=== PATIENT | female | born 1995 | race Caucasian/White ===

== ENCOUNTER 2020-08-08 21:01 | Emergency (ER) | payer BC, MEDICARE ==
[~2020-08-08] VITALS: Ht 165.1 cm; Wt 80.7 kg
[2020-08-08 21:09] VITALS: BP 118/76
--- NOTE | 2020-08-08 21:18 | NUR ---
PT AMBULATED TO ER BED 06
--- NOTE | 2020-08-08 21:25 | NUR ---
BIBS, C/O VAGINAL PAIN WITH LUMPS THAT ARE PALPABLE. C/O PAIN @ 9/10 WHICH RADIATES TO LOWER BACK X2D. PT ABLE TO AMBULATE INDEPENDENTLY. DENIES TRAUMA TO LOCATION. PMH-NONE MEDS- PT UNABLE TO RECALL BUT BELIEVES IT WAS APAP WITH CODIENE THIS AM. ALLERGIES- NKA
--- NOTE | 2020-08-08 21:30 | NUR ---
ER MD AT BEDSIDE EVALUATING PT
[2020-08-08] MEDS: SULFAMETH/TRIMETH DS 800/160MG 1 TAB PO ONE (21:47)
--- NOTE | 2020-08-08 21:47 | NUR ---
MEDICATED ORDERED WITHOUT INCIDENT.
[2020-08-08] MEDS: HYDROcodone/APAP 5/325 MG 1 TAB TAB PO ONE (21:48)
[2020-08-08] MEDS: ONDANSETRON 4 MG ODT PO ONE (21:48)
[2020-08-08 22:10] VITALS: BP 118/76
--- NOTE | 2020-08-08 22:10 | NUR ---
Patient discharged with v/s stable. Written and verbal after care instructions given and explained. Patient alert, oriented and verbalized understanding of instructions. Ambulatory with steady gait. All questions addressed prior to discharge. ID band removed. Patient advised to follow up with PMD. Rx of ZOFRAN, BACTRIM, NORCO given. Patient educated on indication of medication including possible reaction and side effects. Opportunity to ask questions provided and answered.
== END 2020-08-08 22:10 | disposition home or self-care (01) ==
LOC: MED 21:01
DX: N75.1 Abscess of Bartholin's gland (principal)
CPT/HCPCS: 99284; Q0162

== ENCOUNTER 2020-08-16 13:09 | Emergency (ER) | payer BC ==
[~2020-08-16] VITALS: Ht 165.1 cm; Wt 83.9 kg
[2020-08-16 13:24] VITALS: BP 113/71
--- NOTE | 2020-08-16 13:30 | NUR ---
PATIENT AMBULATED TO BED 11. HANDES ON URINE CUP.
--- NOTE | 2020-08-16 13:45 | NUR ---
PT CAME IN TO ER WITH C/O PAIN TO THE VAGINA. PT WAS SEEN A FEW DAYS AGO, GIVEN MEDICATION AND DISCHARGED. PT STATED SHE HAS TWO CYSTS ON EACH SIDE OF HER VAGINA. ONE BURST BUT THE OTHER ONE IS PAINFUL 7/10 AT THIS TIME. PT STATES " SHE FEELS THE MEDICATION IS NOT WORKING AND WANTS A RECHECK". ERMD AWARE. PT A/OX4. SAFETY MEASURES IN PLACE. NO SIGN OF DISTRESS NOTED, PT IN GOWN, WILL CONTINUE TO MONITOR.
[2020-08-16] MEDS ORDERED: LIDOCAINE 2% 1000 MG/50 ML VIAL INJ ONE (14:15)
[2020-08-16] MEDS ORDERED: HYDROcodone/APAP 5/325 MG 1 TAB TAB PO ONE (14:15)
[2020-08-16] MEDS ORDERED: IBUPROFEN 600 MG TAB PO ONE (14:15)
[2020-08-16 15:57] VITALS: BP 103/81
--- NOTE | 2020-08-16 15:57 | NUR ---
Patient discharged with v/s stable. Written and verbal after care instructions given and explained. Patient alert, oriented and verbalized understanding of instructions. Ambulatory with steady gait. All questions addressed prior to discharge. ID band removed. Patient advised to follow up with PMD. Rx of NORCO, BACTRIM, AND MOTRIN given. Patient educated on indication of medication including possible reaction and side effects. Opportunity to ask questions provided and answered. INSTRUCTED PT TO PERFORM SITZ BATH, CONTINUE ABX PRESCRIBED, SEE COILED TUBING OPERATOR IN 2-3 DAYS. ER PRECAUTIONS GIVEN.
== END 2020-08-16 15:57 | disposition home or self-care (01) ==
LOC: MED 13:09
DX: N75.0 Cyst of Bartholin's gland (principal)
CPT/HCPCS: 56405; 81002; 81025; 99284; J2001

== ENCOUNTER 2022-05-22 10:46 | Emergency (ER) | payer BC ==
[~2022-05-22] VITALS: Ht 172.7 cm; Wt 91.6 kg
--- NOTE | 2022-05-22 10:51 | NUR ---
PT AMBULATED TO ER BED 9 WITH A STEADY GAIT FOR BEDSIDE TRIAGE.
[2022-05-22 10:55] VITALS: BP 131/68
--- NOTE | 2022-05-22 11:03 | NUR ---
27 Y/O FEMALE C/O SORETHROAT AND LEFT EAR PAIN 4/10 [id number]. PT STATES SHE TOOK MUCINEX AND IBUPROFEN WITH NO RELIEF. DENIES TINNITUS. DENIES DIZZINESS. PT DENIES SOB, DENIES FEVER/CHILLS. DENIES PMH NKA
--- NOTE | 2022-05-22 12:17 | NUR ---
DR. MODI AT PT BEDSIDE FOR FURTHER EVALUATION.
[2022-05-22] MEDS ORDERED: IBUP-2213 PO (12:53)
[2022-05-22] MEDS ORDERED: PRED20TA5 PO (12:53)
[2022-05-22 13:00] VITALS: BP 126/72
--- NOTE | 2022-05-22 13:02 | NUR ---
Note undone in EDM - 05/22/22 at 1320 by [facility] Patient discharged with v/s stable. Written and verbal after care instructions given FOR SHOULDER PAIN AND RIB CONTUSION and explained. Patient alert, oriented and verbalized understanding of instructions. Ambulatory with steady gait. All questions addressed prior to discharge. ID band removed. Patient advised to follow up with PMD. Rx of IBUPROFEN AND NORCO given. Patient educated on indication of medication including possible reaction and side effects. Opportunity to ask questions provided and answered. 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
--- NOTE | 2022-05-22 13:02 | NUR ---
Patient discharged with v/s stable. Written and verbal after care instructions given FOR SORETHROAT AND EARACHE and explained. Patient alert, oriented and verbalized understanding of instructions. Ambulatory with steady gait. All questions addressed prior to discharge. ID band removed. Patient advised to follow up with PMD. Rx of PREDNISONE AND IBUPROFEN given. Patient educated on indication of medication including possible reaction and side effects. Opportunity to ask questions provided and answered.
== END 2022-05-22 13:02 | disposition home or self-care (01) ==
LOC: MED 10:46
DX: J02.9 Acute pharyngitis, unspecified (principal); H92.01 Otalgia, right ear; H92.02 Otalgia, left ear; R05.9 Cough, unspecified; F12.90 Cannabis use, unspecified, uncomplicated
CPT/HCPCS: 99283